=== PATIENT | male | born 1960 | race Two or more races ===

== ENCOUNTER 2024-08-14 17:24 | Emergency (ER) | payer OTHER ==
[~2024-08-14] VITALS: Ht 180.3 cm; Wt 90.9 kg
[2024-08-14 17:31] VITALS: TEMP 98.5
[2024-08-14 19:54] LABS: ANION GAP 4 mmol/L (8-16); CARBON DIOXIDE 27 mmol/L (22-29); CHLORIDE 103 mmol/L (98-107); CREATININE 0.63 mg/dL (0.60-1.30); GLOMERULAR FILTR. RATE CALC > 60 mL/min (>60); GLUCOSE,RANDOM 112 mg/dL (70-110); POTASSIUM 3.9 mmol/L (3.5-5.1); SODIUM SERUM 134 mmol/L (136-145); UREA NITROGEN, BLOOD 5 mg/dL (7-18)
[2024-08-14 19:55] LABS: BASOPHILS % (AUTO) 0.9 % (0.0-2.0); EOSINOPHILS % (AUTO) 4.4 % (1.0-6.0); HEMOGLOBIN 11.1 g/dL (13.5-17.5); LYMPHOCYTES # (AUTO) 2.9 K/uL (1.0-4.8); LYMPHOCYTES % (AUTO) 58.1 % (22.0-44.0); MEAN CORPUSCULAR HEMOGLOBIN 32.3 pg (26.0-34.0); MEAN CORPUSCULAR HGB CONC 32.7 G/dL (31.0-37.0); MEAN CORPUSCULAR VOLUME 99 fL (80-100); MONOCYTES # (AUTO) 0.5 K/uL (0.1-1.0); MONOCYTES % (AUTO) 10.6 % (2.0-9.0); NEUTROPHILS # (AUTO) 1.3 K/uL (1.8-7.7); RED BLOOD CELL COUNT(AUTO) 3.44 MIL/uL (4.50-5.90)
[2024-08-14 20:02] LABS: TROPONIN I-HIGH SENSITIVITY 6 ng/L (<76)
[2024-08-14 20:07] LABS: B-TYPE NATRIURETIC PEPTIDE 54 pg/mL (0-100)
[2024-08-14 20:26] LABS: PLATELET COUNT (AUTO) 56 K/uL (150-450)
[2024-08-14 21:04] VITALS: BP 157/94; PULSE 88; RESP 19; O2SAT 96
== END 2024-08-14 21:33 | disposition home or self-care (01) ==
LOC: EMS 17:39
DX: S90.32XA Contusion of left foot, initial encounter (principal); R60.0 Localized edema; D64.9 Anemia, unspecified; D69.6 Thrombocytopenia, unspecified; X58.XXXA Exposure to other specified factors, initial encounter; Y93.89 Activity, other specified; Y92.89 Other specified places as the place of occurrence of the external cause; Y99.8 Other external cause status
CPT/HCPCS: 71045; 80048; 83880; 84484; 85025; 93005; 99285; 36415-L1; 36415-TC